=== PATIENT | female | born 1955 | race Hispanic/Latino ===

== ENCOUNTER 2019-10-22 22:23 | Observation (INO) | payer MEDICARE, OTHER ==
[~2019-10-22] VITALS: Ht 157.5 cm; Wt 53.1 kg
[2019-10-22] MEDS ORDERED: FAMOTIDINE 20 MG/2 ML VIAL IV STA (23:12)
[2019-10-22] MEDS ORDERED: DIPHENHYDRAMINE HCL INJ 50 MG/ML VIAL IV ONE (23:15)
--- NOTE | 2019-10-22 23:39 | Emergency Department Note ---
History of Present Illnes History of Present Illness Chief Complaint: Abdominal Complaints History of Present Illness This is a 64 year old female presents to complain of itching all over 2 hours. She reports she was started on hctz 25 mg yesterday for blood pressure management. Patient denies rash shortness of breath or chest pain. Historian: Patient Arrival Mode: Car Onset (how long ago): hour(s) (2) Location: all over Quality: itching Radiation: Reports non-radiation Severity: mild Onset quality: sudden Duration (how long): hour(s) (2) Timing of current episode: constant Progression: unchanged Chronicity: new Context: Reports other (new medication hctz started yesterda); Denies recent illness, Denies recent surgery Relieving factors: none Exacerbating factors: none Associated symptoms: Reports denies other symptoms Treatments prior to arrival: none Past Medical/Family History Physician Review I have reviewed the patient's past medical and family history. Any updates have been documented here. Past Medical History Recent Fever: No Clinical Suspicion of Infectio: No New/Unexplained Change in Ment: No Past Medical History: Hypertension, Diabetes, GERD Other Surgery: HERNIA REPAIR C SECTION Social History Smoking Cessation: Never Smoker Alcohol Use: None Any Illegal Drug Use: No Family History Family history of heart diseas: No Other family history htn,dm Other Last Tetanus: UNKNOWN Review of Systems Review of Systems Constitutional: Reports no symptoms EENTM: Reports no symptoms Cardiovascular: Reports no symptoms Respiratory: Reports no symptoms Gastrointestinal: Reports no symptoms Genitourinary: Reports no symptoms Musculoskeletal: Reports no symptoms Integumentary: Reports as per HPI Neurological: Reports no symptoms Psychological: Reports no symptoms Endocrine: Reports no symptoms Hematological/Lymphatic: Reports no symptoms Physical Exam Related Data Allergies: Coded Allergies: No Known Allergies (Unverified , 10/22/19) Triage Vital Signs Vital Signs Date Time Temp Pulse Resp B/P (MAP) Pulse Ox O2 Delivery O2 Flow Rate FiO2 10/22/19 23:07 98.7 70 16 192/90 100 Vital signs reviewed: Yes Physical Exam CONSTITUTIONAL Constitutional: Present well-developed, Present well-nourished HENT HENT: Present normocephalic, Present atraumatic, Present oropharynx clear/moist, Present nose normal HENT L/R: Present left ext ear normal, Present right ext ear normal EYES Eyes: Reports PERRL, Reports conjunctivae normal NECK Neck: Present ROM normal PULMONARY Pulmonary: Present effort normal, Present breath sounds normal CARDIOVASCULAR Cardiovascular: Present regular rhythm, Present heart sounds normal, Present capillary refill normal, Present normal rate GASTROINTESTINAL Abdominal: Present soft, Present nontender, Present bowel sounds normal GENITOURINARY Genitourinary: Present exam deferred SKIN Skin: Present warm, Present dry, Present other (no rash noted) MUSCULOSKELETAL Musculoskeletal: Present ROM normal NEUROLOGICAL Neurological: Present alert, Present oriented x 3, Present no gross motor or sensory deficits PSYCHOLOGICAL Psychological: Present mood/affect normal, Present judgement normal Results Laboratory Laboratory Laboratory Tests Test 10/22/19 23:20 White Blood Count 5.87 x10e3/uL (4.8-10.8) Red Blood Count 4.20 x10e6/uL (3.6-5.1) Hemoglobin 12.9 g/dL (12.0-16.0) Hematocrit 36.7 % (34.2-44.1) Mean Corpuscular Volume 87.4 fL (81-99) Mean Corpuscular Hemoglobin 30.7 pg (28-32) Mean Corpuscular Hemoglobin Concent 35.1 g/dL (31-35) Red Cell Distribution Width 11.5 % (11.7-14.4) Platelet Count 208 x10e3/uL (140-360) Neutrophils (%) (Auto) 71.1 % (38.7-80.0) Lymphocytes (%) (Auto) 20.3 % (18.0-39.1) Monocytes (%) (Auto) 8.0 % (4.4-11.3) Eosinophils (%) (Auto) 0.0 % (0.0-6.0) Basophils (%) (Auto) 0.3 % (0.0-1.0) Neutrophils # (Auto) 4.2 (2.1-6.9) Lymphocytes # (Auto) 1.2 (1.0-3.2) Monocytes # (Auto) 0.5 (0.2-0.8) Eosinophils # (Auto) 0.0 (0.0-0.4) Basophils # (Auto) 0.0 (0.0-0.1) Absolute Immature Granulocyte (auto 0.02 x10e3/uL (0-0.1) Sodium Level 123 mmol/L (136-145) Potassium Level 3.1 mmol/L (3.5-5.1) Chloride Level 84 mmol/L (98-107) Carbon Dioxide Level 25 mmol/L (22-29) Anion Gap 17.1 mmol/L (8-16) Blood Urea Nitrogen 9 mg/dL (7-26) Creatinine 0.78 mg/dL (0.57-1.11) Estimat Glomerular Filtration Rate > 60 ML/MIN (60-) BUN/Creatinine Ratio 12 (6-25) Glucose Level 128 mg/dL (74-118) Calcium Level 9.4 mg/dL (8.4-10.2) Lab results reviewed: Yes Assessment & Plan Medical Decision Making MDM Patient with itching all over the started to ours ago patient started on hydrochlorothiazide yesterday. CBC, BMP ordered to eval for uremia and renal insufficiency. Benadryl 25 mg IV ordered, Pepcid 20 mg IV ordered. Patient found to be hypochloremic hypokalemic and hyponatremic on lab work. I spoke with Dr. Stephanie Ray and STARTED on normal saline with 20 K1 liter at 100 mL an hour 1 reassess electrolytes in the morning. Assessment & Plan Final Impression: (1) Hyponatremia (2) Hypokalemia (3) Hypochloremia (4) Itching due to drug Depart Disposition: ADMITTED Last Vital Signs Date Time Temp Pulse Resp B/P (MAP) Pulse Ox O2 Delivery O2 Flow Rate FiO2 10/22/19 23:07 98.7 70 16 192/90 100 Medications in the ED Diphenhydramine HCl 25 mg NOW ONCE IV Last administered on 10/22/19at 23:19; Admin Dose 25 MG; Start 10/22/19 at 23:15; Stop 10/22/19 at 23:23; Status DC Famotidine 20 mg NOW STAT IV Last administered on 10/22/19at 23:19; Admin Dose 20 MG; Start 10/22/19 at 23:12; Stop 10/22/19 at 23:23; Status DC BRADEN FORREST MD Oct 22, 2019 23:39
[2019-10-22 23:58] LABS: ANION GAP 17.1 mmol/L (8-16); BLOOD UREA NITROGEN 9 mg/dL (7-26); BUN/CREATININE RATIO 12 (6-25); CALCIUM 9.4 mg/dL (8.4-10.2); CARBON DIOXIDE 25 mmol/L (22-29); CHLORIDE 84 mmol/L (98-107); CREATININE, SERUM 0.78 mg/dL (0.57-1.11); EST GLOMERULAR FILTRATION RATE > 60 ML/MIN (60-); GLUCOSE 128 mg/dL (74-118); POTASSIUM 3.1 mmol/L (3.5-5.1); SODIUM 123 mmol/L (136-145)
[2019-10-23] VITALS (7 sets, daily range): BP systolic 108–140; BP diastolic 65–68
[2019-10-23 00:33] LABS: BASOPHILS % 0.3 % (0.0-1.0); HEMATOCRIT 36.7 % (34.2-44.1); HEMOGLOBIN 12.9 g/dL (12.0-16.0); LYMPHOCYTES # (AUTO) 1.2 (1.0-3.2); LYMPHOCYTES % 20.3 % (18.0-39.1); MEAN CORPUSCULAR HEMOGLOBIN 30.7 pg (28-32); MEAN CORPUSCULAR HGB CONC 35.1 g/dL (31-35); MEAN CORPUSCULAR VOLUME 87.4 fL (81-99); MONOCYTES # (AUTO) 0.5 (0.2-0.8); NEUTROPHILS # (AUTO) 4.2 (2.1-6.9); NEUTROPHILS % 71.1 % (38.7-80.0); PLATELET COUNT 208 x10e3/uL (140-360); RED CELL DISTRIBUTION WIDTH 11.5 % (11.7-14.4)
[2019-10-23] MEDS ORDERED: DEXTROSE 50% SYRINGE 50 ML IV PRN (00:45)
[2019-10-23] MEDS ORDERED: ONDANSETRON HCL INJ 2MG/ML 2ML 2 MG/ML VIAL IV PRN (00:45)
[2019-10-23] MEDS ORDERED: KCL 20MEQ/.9 SOD CHL 1,000 ML IV ONE (00:45)
[2019-10-23] MEDS ORDERED: HYDRALAZINE HCL 20 MG/ML VIAL IV PRN (01:15)
[2019-10-23] MEDS ORDERED: FLAXSEED OIL1000 MG PO (02:45)
[2019-10-23] MEDS ORDERED: GLYCOPYRROLATE2 MG PO (02:45)
[2019-10-23] MEDS ORDERED: ZOFRAN4 MG PO (02:45)
[2019-10-23] MEDS ORDERED: ASPIR 8181 MG PO (02:45)
[2019-10-23] MEDS ORDERED: [UNRECOGNIZED DRUG - OTHER] PO (02:45)
[2019-10-23] MEDS ORDERED: METFORMIN HCL500 MG PO (02:45)
[2019-10-23] MEDS ORDERED: CRANBERRY PLUS1 EACH PO (02:45)
[2019-10-23] MEDS ORDERED: PROTONIX20 MG PO (02:45)
[2019-10-23] MEDS ORDERED: MELATONIN3 MG PO (02:45)
[2019-10-23] MEDS ORDERED: CALCIUM PO (02:45)
[2019-10-23] MEDS ORDERED: ALENDRONATE SOD70 MG PO (02:45)
[2019-10-23] MEDS ORDERED: ATENOLOL50 MG PO (02:45)
[2019-10-23] MEDS ORDERED: [UNRECOGNIZED DRUG - OTHER] PO (02:45)
[2019-10-23] MEDS: INSULIN REGULAR, HUMAN 100 UNIT/1 ML 3ML VIAL SQ SCH ×2 (07:30→11:30)
[2019-10-23] MEDS ORDERED: MELATONIN 3 MG TAB PO PRN (11:15)
[2019-10-23] MEDS ORDERED: MELATONIN 5 MG TABLET PO PRN (11:30)
--- NOTE | 2019-10-23 13:24 | History and Physical ---
PCP: Dr. Burk at [facility]. CHIEF COMPLAINT: Itching and tingling sensation all over the body. HISTORY OF PRESENT ILLNESS: This is a 64-year-old female with past medical history of diabetes, hypertension, GERD, and osteoarthritis, presented to the ER with complaints of itching, tingling sensation, chills and nausea that started after taking her hydrochlorothiazide. She reports had gone to see her primary care doctor and was prescribed hydrochlorothiazide to help with her blood pressure, was told was a diuretic. She took 2 doses and reports had polyuria. In the evening, she noted that she was having itchiness, but there was no rash noted. Had chills and nausea, but no vomiting. She denies any dysuria, pelvic pain, or change in mental status. She denies any chest pain, shortness of breath, vomiting, diarrhea, or hematuria. In the ER, she was noted to have a sodium level of 123, potassium 3.1, creatinine 0.7, and was admitted after being given fluid and potassium. PAST MEDICAL HISTORY: 1. Diabetes. 2. Hypertension. 3. GERD. 4. Osteoarthritis. PAST SURGICAL HISTORY: Reports hernia repair and x1. FAMILY MEDICAL HISTORY: Reports mother has diabetes, but father has no medical history. SOCIAL HISTORY: Denies any tobacco, alcohol, or illicit drug use. ALLERGIES: TO HYDROCHLOROTHIAZIDE. REVIEW OF SYSTEMS: A 12-system review was negative except as noted above in HPI. PHYSICAL EXAMINATION: VITAL SIGNS: Temperature 97.7, pulse is 63, respirations 18, blood pressure 121/68, and pulse ox is 100% on room air. GENERAL: No acute distress. HEENT: Normocephalic and atraumatic. NECK: Supple. LUNGS: Clear to auscultation. CARDIOVASCULAR: Regular rate and rhythm. GI: Soft and nontender. NEUROLOGIC: Alert, awake, and oriented x3. MUSCULOSKELETAL: Moves all extremities. SKIN: Dry and intact. PSYCH: Calm. LABORATORY DATA: WBC 5.87, hemoglobin 12.9, hematocrit 36.7, and platelets 208. Sodium 123, potassium 3.1, chloride 84, anion gap 17.1, creatinine 0.78, estimated GFR is 60, glucose 128, and calcium is 9.4. Coronavirus PCR is pending. IMPRESSION: 1. Severe hyponatremia. Likely due to new HCTZ use. She has no mental status deficit. Itching has resolved. We will discontinue HCTZ, continue IV fluids and repeat labs at noon. 2. Hypokalemia. Again, this is due to the hydrochlorothiazide. Replace and recheck blood work. 3. Hypertension. We will continue atenolol and discontinue hydrochlorothiazide. 4. Diabetes type 2. We will resume her home metformin and sliding scale insulin as needed. 5. History of gastroesophageal reflux disease. We will resume Protonix. 6. Osteoarthritis. We will manage pain as needed with Tylenol. 7. Deep vein thrombosis prophylaxis. Not indicated SCDs at this time. 8. Hypo-chloride. Again due to hydrochlorothiazide. We will hydrate and repeat blood work. PLAN: To continue IV fluid hydration, stop HCTZ, we will repeat labs and if it is improved, we will discharge home to follow up with her PCP next week. Dictated by VIVIEN Clemons Earl Romero MD MY/MODL /[id number]
[2019-10-23 15:22] LABS: BASOPHILS % 0.2 % (0.0-1.0); EOSINOPHILS % 0.5 % (0.0-6.0); HEMATOCRIT 35.7 % (34.2-44.1); HEMOGLOBIN 12.2 g/dL (12.0-16.0); LYMPHOCYTES # (AUTO) 1.5 (1.0-3.2); LYMPHOCYTES % 33.9 % (18.0-39.1); MEAN CORPUSCULAR HEMOGLOBIN 30.5 pg (28-32); MEAN CORPUSCULAR HGB CONC 34.2 g/dL (31-35); MEAN CORPUSCULAR VOLUME 89.3 fL (81-99); MONOCYTES # (AUTO) 0.6 (0.2-0.8); MONOCYTES % 13.5 % (4.4-11.3); NEUTROPHILS # (AUTO) 2.3 (2.1-6.9); NEUTROPHILS % 51.7 % (38.7-80.0); PLATELET COUNT 189 x10e3/uL (140-360); RED CELL DISTRIBUTION WIDTH 11.9 % (11.7-14.4)
[2019-10-23 15:49] LABS: ANION GAP 12.3 mmol/L (8-16); BLOOD UREA NITROGEN 13 mg/dL (7-26); BUN/CREATININE RATIO 16 (6-25); CALCIUM 9.4 mg/dL (8.4-10.2); CARBON DIOXIDE 28 mmol/L (22-29); CHLORIDE 98 mmol/L (98-107); CREATININE, SERUM 0.83 mg/dL (0.57-1.11); EST GLOMERULAR FILTRATION RATE > 60 ML/MIN (60-); GLUCOSE 100 mg/dL (74-118); POTASSIUM 4.3 mmol/L (3.5-5.1); SODIUM 134 mmol/L (136-145)
--- NOTE | 2019-10-23 21:29 | Discharge Summary ---
PCP: Dr. Burk at [facility]. FINAL DISCHARGE DIAGNOSES: 1. Hyponatremia. 2. Hypokalemia. 3. Hypertension. 4. Diabetes type 2. 5. Gastroesophageal reflux disease. 6. Osteoarthritis. CONSULTANTS: None. PROCEDURES: None. HISTORY: Per HPI. HOSPITAL COURSE: This is a 64-year-old female with a past medical history of diabetes, hypertension, GERD, and osteoarthritis, presented to the ER with complaints of body tingling and itching after taking hydrochlorothiazide x1 day. She was noted to have severe hyponatremia with a sodium of 123 and hypokalemia and hypo-chloride. She was started on IV fluids and potassium to replace. She was monitored overnight and repeat blood work shows improvement. She is advised to stop taking the hydrochlorothiazide and follow up with her PCP in 1 to 2 weeks for repeat blood work. PHYSICAL EXAMINATION: VITAL SIGNS: Temperature 97.7, pulse 63, respirations 18, blood pressure 121/68, and pulse ox 100% on room air. GENERAL: No acute distress. LUNGS: Clear to auscultation. CARDIOVASCULAR: Regular rate and rhythm. GI: Soft and nontender. NEUROLOGIC: Alert, awake, and oriented x3. SKIN: Dry. CONDITION AT DISCHARGE: Improved and stable. DISCHARGE MEDICATIONS: Please see medication reconciliation list. FOLLOWUP: Follow up with PCP next week for a repeat BMP. TIME SPENT: Total time of discharge is 32 minutes. Dictated by VIVIEN Clemons Earl Romero MD MY/MODL /[id number] cc: Shalom Burk MD
[2019-10-24] MEDS ORDERED: METFORMIN HCL 500 MG TAB PO SCH (08:00)
[2019-10-24] MEDS ORDERED: ATENOLOL 50 MG TAB PO SCH (09:00)
[2019-10-24] MEDS ORDERED: ASPIRIN 81 MG CHEW TAB PO SCH (09:00)
[2019-10-24] MEDS ORDERED: PANTOPRAZOLE SOD 40 MG TABEC PO SCH (09:00)
== END 2019-10-23 16:30 | disposition home or self-care (01) ==
LOC: ER 22:23 → ERHOLD 10-23 00:58 → MED/SURG 10-23 01:36
PROVIDERS: ADMIT Internal Medicine; ATTEND Internal Medicine
DX: E87.1 Hypo-osmolality and hyponatremia (principal); E87.6 Hypokalemia; E87.8 Other disorders of electrolyte and fluid balance, not elsewhere classified; T50.2X5A Adverse effect of carbonic-anhydrase inhibitors, benzothiadiazides and other diuretics, initial encounter; E11.9 Type 2 diabetes mellitus without complications; I10 Essential (primary) hypertension; K21.9 Gastro-esophageal reflux disease without esophagitis; M19.90 Unspecified osteoarthritis, unspecified site; Z79.84 Long term (current) use of oral hypoglycemic drugs
CPT/HCPCS: 36415 ×2; 80048 ×2; 82948; 85025 ×2; 87635; 99284; G0378; J1200

== ENCOUNTER 2019-10-27 15:28 | Emergency (ER) | payer MEDICARE ==
[~2019-10-27] VITALS: Ht 157.5 cm; Wt 53.1 kg
[~2019-10-27 15:28] MED LIST: ALENDRONATE SOD70 MG PO; ASPIR 8181 MG PO; ATENOLOL50 MG PO; CALCIUM PO; CRANBERRY PLUS1 EACH PO; FLAXSEED OIL1000 MG PO; GLYCOPYRROLATE2 MG PO; MELATONIN3 MG PO; METFORMIN HCL500 MG PO; PROTONIX20 MG PO; ZOFRAN4 MG PO; [UNRECOGNIZED DRUG - OTHER] PO; [UNRECOGNIZED DRUG - OTHER] PO
[2019-10-27 17:18] LABS: CLARITY,URINE CLEAR (CLEAR); COLOR,URINE YELLOW (YELLOW)
[2019-10-27 17:19] LABS: LEUKOCYTE ESTERASE ,URINE NEGATIVE (NEGATIVE); NITRITE,URINE NEGATIVE (NEGATIVE)
[2019-10-27 17:20] LABS: BILIRUBIN,URINE NEGATIVE (NEGATIVE); KETONES,URINE 1+ (NEGATIVE); PROTEIN,URINE DIPSTICK NEGATIVE (NEGATIVE); URINE UROBILINOGEN 0.2 mg/dL (0.2 - 1)
[2019-10-27 17:26] LABS: BACTERIA,URINE RARE /HPF; EPITHELIAL CELLS,URINE FEW /LPF; RBC,URINE 0-5 /HPF (0-5); WBC,URINE (MAN) 0-5 /HPF (0-5)
--- NOTE | 2019-10-27 18:13 | Emergency Department Note ---
History of Present Illnes History of Present Illness Chief Complaint: General Medicine Complaints History of Present Illness This is a 64 year old female arrives to the ED for nausea. Patient states symptoms have now resolved since her ED stay and she wishes to go home. Patient states she was concerned her sodium was low again because I was her recent ER visit. Patient states her medicine has been switched from hydrochlorothiazide to and amlodipine/lisinopril combination med. Patient states she saw her PCP on Thursday and have repeat blood work but has not followed up with him for the results. Historian: Patient Arrival Mode: Car Onset (how long ago): minute(s) Severity: mild Timing of current episode: constant Chronicity: recurrent Context: Reports other (recent ER visit for hyponatremia) Treatments prior to arrival: none Past Medical/Family History Physician Review I have reviewed the patient's past medical and family history. Any updates have been documented here. Past Medical History Recent Fever: No Clinical Suspicion of Infectio: No New/Unexplained Change in Ment: No Past Medical History: Hypertension, Diabetes, GERD Past Surgical History: , Hernia Repair Other Surgery: HERNIA REPAIR C SECTION Social History Smoking Cessation: Never Smoker Counseling Performed: No Alcohol Use: Occasional Any Illegal Drug Use: No TB Exposure/Symptoms: No Physically hurt or threatened: No Other Last Tetanus: UNKNOWN Review of Systems Review of Systems Constitutional: Reports no symptoms EENTM: Reports no symptoms Cardiovascular: Reports no symptoms Respiratory: Reports no symptoms Gastrointestinal: Reports as per HPI, Reports nausea Genitourinary: Reports no symptoms Musculoskeletal: Reports no symptoms Integumentary: Reports no symptoms Neurological: Reports no symptoms Psychological: Reports no symptoms Endocrine: Reports no symptoms Hematological/Lymphatic: Reports no symptoms Physical Exam Related Data Allergies: Coded Allergies: hydrochlorothiazide (Verified Allergy, Unknown, ITCHING, 10/23/19) Triage Vital Signs Vital Signs Date Time Temp Pulse Resp B/P (MAP) Pulse Ox O2 Delivery O2 Flow Rate FiO2 10/27/19 16:41 98.7 71 16 142/87 98 Vital signs reviewed: Yes Physical Exam CONSTITUTIONAL Constitutional: Present well-developed, Present well-nourished HENT HENT: Present normocephalic, Present atraumatic, Present oropharynx clear/moist, Present nose normal HENT L/R: Present left ext ear normal, Present right ext ear normal EYES Eyes: Reports PERRL, Reports conjunctivae normal NECK Neck: Present ROM normal PULMONARY Pulmonary: Present effort normal, Present breath sounds normal CARDIOVASCULAR Cardiovascular: Present regular rhythm, Present heart sounds normal, Present capillary refill normal, Present normal rate GASTROINTESTINAL Abdominal: Present soft, Present nontender, Present bowel sounds normal GENITOURINARY Genitourinary: Present exam deferred SKIN Skin: Present warm, Present dry MUSCULOSKELETAL Musculoskeletal: Present ROM normal NEUROLOGICAL Neurological: Present alert, Present oriented x 3, Present no gross motor or sensory deficits PSYCHOLOGICAL Psychological: Present mood/affect normal, Present judgement normal Results Laboratory Laboratory Laboratory Tests Test 10/27/19 16:50 Urine Color Yellow (YELLOW) Urine Clarity Clear (CLEAR) Urine pH 5.5 (5 - 7) Urine Specific [place] <=1.005 (1.010-1.025) Urine Protein Negative (NEGATIVE) Urine Glucose (UA) Negative (NEGATIVE) Urine Ketones 1+ (NEGATIVE) Urine Blood Negative (NEGATIVE) Urine Nitrite Negative (NEGATIVE) Urine Bilirubin Negative (NEGATIVE) Urine Urobilinogen 0.2 mg/dL (0.2 - 1) Urine Leukocyte Esterase Negative (NEGATIVE) Urine RBC 0-5 /HPF (0-5) Urine WBC 0-5 /HPF (0-5) Urine Epithelial Cells Few /LPF (NONE) Urine Bacteria Rare /HPF (NONE) Assessment & Plan Medical Decision Making MDM 64-year-old well-appearing female arrived to the ED with concerns of recurrent hyponatremia. Patient admits she is off the hydrochlorothiazide but felt a little nauseous and came to the ED. During the ED stay patient states she feels fine and does not wish to have blood within the ER. Patient later admitted to getting blood work done in the ED on Thursday but failed to follow up with her PCP for the results. Patient states she would rather go to PCP tomorrow for further workup and management. Assessment & Plan Final Impression: (1) Nausea Depart Disposition: HOME, SELF-CARE Last Vital Signs Date Time Temp Pulse Resp B/P (MAP) Pulse Ox O2 Delivery O2 Flow Rate FiO2 10/27/19 16:41 98.7 71 16 142/87 98 Home Meds Reported Medications Pantoprazole Sodium (PROTONIX) 20 Mg Tablet.dr, 40 MG PO DAILY, #30 TAB 10/23/19 Ondansetron Hcl* (ZOFRAN*) 4 Mg Tablet, 4 MG PO Q12H PRN for NAUSEA 10/23/19 Metformin Hcl (METFORMIN HCL) 500 Mg Tablet, 500 MG PO DAILY, #60 TAB 10/23/19 Melatonin (MELATONIN) 3 Mg Tablet, 5 MG PO HS PRN for SLEEP, TAB 10/23/19 Glycopyrrolate (GLYCOPYRROLATE) 2 Mg Tablet, 1 MG PO TID 10/23/19 Flaxseed (FLAXSEED OIL) 1,000 Mg Capsule, 2 CAP PO DAILY 10/23/19 Cranberry Conc/Ascorbic Acid (Cranberry Plus Vitamin C Sftgl) 1 Each Capsule, PO DAILY 10/23/19 [calcium 1200+d3] No Conflict Check, PO DAILY 10/23/19 Atenolol (ATENOLOL) 50 Mg Tablet, 100 MG PO DAILY 10/23/19 Aspirin (ASPIR 81) 81 Mg Tablet.dr, 81 MG PO DAILY 10/23/19 [Amlodipin-Benazepril] No Conflict Check, 5-20 MG PO DAILY amlodipine-benazepril 5-20mg 10/23/19 Alendronate Sodium (ALENDRONATE SODIUM) 70 Mg Tablet, 70 MG PO QWEEKLY EVERY Thursday10/23/19 ANTHONY JAY, Oct 27, 2019 18:13
--- NOTE | 2019-10-27 18:30 | NUR ---
client refused blood draw, and stated that she felt better. Dr. Gomes spoke to her and offered her various treatments, client states that she wants to go home.
== END 2019-10-27 18:38 | disposition home or self-care (01) ==
LOC: ER 15:28
DX: R11.0 Nausea (principal); I10 Essential (primary) hypertension; E11.9 Type 2 diabetes mellitus without complications; K21.9 Gastro-esophageal reflux disease without esophagitis
CPT/HCPCS: 81001; 99282